=== PATIENT | male | born 1980 | race American Indian/Alaskan Native ===

== ENCOUNTER 2016-05-20 11:12 | Emergency (ER) | payer SELFPAY ==
[2016-05-20] MEDS ORDERED: TORADOL IM ONE (11:20)
--- NOTE | 2016-05-20 11:23 | Emergency Department Report ---
Stated Complaint: SEVERE ABD PAIN Time Seen by Provider: 05/20/16 11:16 - HPI History of Present Illness: 35-year-old patient male comes in with training abdominal pain that woke him up this morning. Nausea nausea vomiting denies any fever or chills just diaphoretic. Patient denies any dysuria. - Exam Physical Exam: Patient's alert and oriented in acute distress. Anxious pacing grabbing his stomach. Cardiovascular S1-S2 regular rate and rhythm respiratory pertussis and bilateral abdomen very tense guarding bowel sounds present. MSE screening note: Focused history and physical exam performed. Due to findings the following was ordered: CT scan ordered abdominal protocol and Toradol 60 mg IM IV insertion ordered. ED Disposition for MSE Condition: Stable
[2016-05-20 11:44] LABS: Basophils % (Auto) 0.5 % (0.0-1.8); Eosinophils % (Auto) 0.6 % (0.0-4.3); Hematocrit 47.7 % (35.5-45.6); Hemoglobin 16.4 gm/dl (11.8-15.2); Mean Corpuscular HGB Conc 34 % (32-34); Mean Corpuscular Hemoglobin 31 pg (28-32); Mean Corpuscular Volume 91 fl (84-94); Platelet Count 283 K/mm3 (140-440); Red Blood Count 5.22 M/mm3 (3.65-5.03); White Blood Count 15.3 K/mm3 (4.5-11.0)
[2016-05-20 12:06] LABS: Alanine Aminotransferase 28 units/L (7-56); Albumin 4.5 g/dL (3.9-5); Albumin/Globulin Ratio 1.6 %; Alkaline Phosphatase 80 units/L (35-129); Anion Gap 18 mmol/L; Bilirubin,Total 0.9 mg/dL (0.1-1.2); Blood Urea Nitrogen 12 mg/dL (9-20); Calcium 9.5 mg/dL (8.4-10.2); Carbon Dioxide 23 mmol/L (22-30); Chloride 103.3 mmol/L (98-107); Glucose 157 mg/dL (75-100); Lipase 16 units/L (13-60); Potassium 4.6 mmol/L (3.6-5.0); Sodium 140 mmol/L (137-145); Total Protein 7.4 g/dL (6.3-8.2)
--- NOTE | 2016-05-20 12:18 | Cat Scan Report ---
CT scan of abdomen and pelvis without IV contrast: History: Severe abdominal pain. Findings: Normal lung bases. No pleural pericardial effusion. Large hiatal hernia. Normal liver spleen pancreas and gallbladder. Normal adrenals. 7.7 cm cyst right kidney. No calculi or evidence of hydronephrosis. Normal bladder. No free intraperitoneal air or fluid. No evidence of adenopathy. Normal aorta. Normal appendix. No evidence of diverticulosis or diverticulitis. Stool in colon. No bowel distention. Impression: Large hiatal hernia. Large cyst right kidney.
--- NOTE | 2016-05-20 12:44 | Emergency Department Report ---
HPI - General Chief Complaint: Abdominal Pain Time Seen by Provider: 05/20/16 11:16 - HPI HPI: Room 19 The patient is a 35-year-old male presenting with a chief complaint of abdominal pain. The patient states was severe epigastric abdominal pain described as tightness. Patient denies nausea vomiting or shortness of breath states he was diaphoretic. Patient states his last bowel movement occurred yesterday and was within normal limits. Patient denies any history of fever or previous episodes of same. The patient states when he arrived his pain was a 10 /10 but after receiving Toradol it has decreased to a 3/10. Patient denies chest pain. Location: Epigastric Duration: Constant since 09:00 Quality: Tightness Severity: 3/10 Modifying factors: [see above] Context: [see above] Mode of transportation: Unknown ED Past Medical Hx - Past Medical History Previous Medical History?: No - Surgical History Additional Surgical History: "Stomach wrap because my esophagus wouldn't close" - Family History Family history: no significant - Social History Smoking Status: Never Smoker Substance Use Type: None - Medications Home Medications: Home Medications Medication Instructions Recorded Confirmed Last Taken Type Famotidine [Pepcid] 20 mg PO BID #30 tablet 05/20/16 Unknown Rx traMADol [Ultram] 50 mg PO Q6HR PRN #10 tablet 05/20/16 Unknown Rx ED Review of Systems ROS: Stated complaint: SEVERE ABD PAIN Other details as noted in HPI Comment: All other systems reviewed and negative Constitutional: diaphoresis. denies: chills, fever Eyes: denies: eye pain, eye discharge, vision change ENT: denies: ear pain, throat pain Respiratory: denies: cough, shortness of breath, wheezing Cardiovascular: denies: chest pain Endocrine: no symptoms reported Gastrointestinal: abdominal pain. denies: nausea, vomiting, diarrhea Genitourinary: denies: urgency, dysuria Musculoskeletal: denies: back pain, joint swelling, arthralgia Skin: denies: rash, lesions Neurological: denies: headache, weakness, paresthesias Psychiatric: denies: anxiety, depression Hematological/Lymphatic: denies: easy bleeding, easy bruising Physical Exam - Physical Exam Vital Signs: Vital Signs 05/20/16 11:18 Pulse Rate 86 Respiratory 22 Rate Blood Pressure 131/94 O2 Sat by Pulse 100 Oximetry Physical Exam: GENERAL: The patient is well-developed well-nourished male sitting on the bed not appearing to be in acute distress. [] HEENT: Normocephalic. Atraumatic. Extraocular motions are intact. Patient has moist mucous membranes. NECK: Supple. Trachea midline CHEST/LUNGS: Clear to auscultation. There is no respiratory distress noted. HEART/CARDIOVASCULAR: Regular. There is no tachycardia. There is no gallop rub or murmur. ABDOMEN: Abdomen is soft, nontender. Patient has normal bowel sounds. There is no abdominal distention. Absent Morrell sign. There is no rebound or guarding SKIN: There is no rash. There is no edema. There is no diaphoresis. NEURO: The patient is awake, alert, and oriented. The patient is cooperative. The patient has normal speech MUSCULOSKELETAL: There is no evidence of acute injury. ED Course Vital Signs 05/20/16 11:18 Pulse Rate 86 Respiratory 22 Rate Blood Pressure 131/94 O2 Sat by Pulse 100 Oximetry - Reevaluation(s) Reevaluation #1: 05/20/16 13:30 Patient states he feels improved ED Medical Decision Making - Lab Data Result diagrams: 05/20/16 11:30 05/20/16 11:30 Laboratory Tests 05/20/16 05/20/16 05/20/16 11:30 11:30 11:30 WBC 15.3 H RBC 5.22 H Hgb 16.4 H Hct 47.7 H MCV 91 MCH 31 MCHC 34 RDW 13.0 L Plt Count 283 Lymph % (Auto) 13.4 [place] % (Auto) 5.6 Eos % (Auto) 0.6 Baso % (Auto) 0.5 Lymph # 2.1 [place] # 0.9 H Eos # 0.1 Baso # 0.1 Seg Neutrophils % 79.9 H Seg Neutrophils # 12.2 H Sodium 140 Potassium 4.6 Chloride 103.3 Carbon Dioxide 23 Anion Gap 18 BUN 12 Creatinine 1.1 Estimated GFR > 60 BUN/Creatinine Ratio 10.90 Glucose 157 H Calcium 9.5 Total Bilirubin 0.9 AST 20 ALT 28 Alkaline Phosphatase 80 Total Creatine Kinase 208 H CK-MB (CK-2) 3.0 CK-MB (CK-2) Rel Index 1.4 Troponin T < 0.010 Total Protein 7.4 Albumin 4.5 Albumin/Globulin Ratio 1.6 Lipase 16 Urine Color Urine Turbidity Urine pH Ur Specific [place] Urine Protein Urine Glucose (UA) Urine Ketones Urine Blood Urine Nitrite Urine Bilirubin Urine Urobilinogen Ur Leukocyte Esterase Urine WBC (Auto) Urine RBC (Auto) Urine Bacteria (Auto) Amorphous Crystals Urine Mucus 05/20/16 05/20/16 11:55 14:26 WBC RBC Hgb Hct MCV MCH MCHC RDW Plt Count Lymph % (Auto) [place] % (Auto) Eos % (Auto) Baso % (Auto) Lymph # [place] # Eos # Baso # Seg Neutrophils % Seg Neutrophils # Sodium Potassium Chloride Carbon Dioxide Anion Gap BUN Creatinine Estimated GFR BUN/Creatinine Ratio Glucose Calcium Total Bilirubin AST ALT Alkaline Phosphatase Total Creatine Kinase 178 H CK-MB (CK-2) 2.8 CK-MB (CK-2) Rel Index 1.5 Troponin T < 0.010 Total Protein Albumin Albumin/Globulin Ratio Lipase Urine Color Yellow Urine Turbidity Slightly-cloudy Urine pH 5.0 Ur Specific [place] 1.023 Urine Protein 30 mg/dl Urine Glucose (UA) Neg Urine Ketones Neg Urine Blood Mod Urine Nitrite Neg Urine Bilirubin Neg Urine Urobilinogen < 2.0 Ur Leukocyte Esterase Neg Urine WBC (Auto) 1.0 Urine RBC (Auto) 15.0 Urine Bacteria (Auto) 1+ Amorphous Crystals Few Urine Mucus 3+ - EKG Data -: EKG Interpreted by Me EKG shows normal: sinus rhythm Rate: bradycardia (59 bpm) - EKG Data When compared to previous EKG there are: previous EKG unavailable - Radiology Data Radiology results: report reviewed (CT abdomen and pelvis), image reviewed (CT abdomen and pelvis) CT abdomen and pelvis (read by radiologist)-large hiatal hernia. Large cyst right kidney. - Differential Diagnosis pancreatitis, peptic ulcer disease, GERD, hiatal hernia, ACS, cholelithiasi Critical care attestation.: If time is entered above; I have spent that time in minutes in the direct care of this critically ill patient, excluding procedure time. ED Disposition Clinical Impression: Abdominal pain, acute, epigastric, Hiatal hernia, Cyst of right kidney Disposition: DISCHARGED TO HOME OR SELFCARE Is pt being admited?: No Does the pt Need Aspirin: No Condition: Stable Instructions: Hiatal Hernia (ED) Additional Instructions: Return to the emergency department immediately should you develop worsening symptoms, fever, inability to tolerate food or liquid or any other concerns. Prescriptions: Famotidine [Pepcid] 20 mg PO BID #30 tablet traMADol [Ultram] 50 mg PO Q6HR PRN #10 tablet PRN Reason: Pain Referrals: PRIMARY CARE, [Primary Care Provider] - 3-5 Days ZOHREH BEE MD [Staff Physician] - 3-5 Days (Dr. Bee is a hardware design engineer. Please follow up with her for further evaluation of your right kidney cyst) PAULO BROCK MD [Staff Physician] - 3-5 Days (Dr. Brock is a exchange engineer. Please follow-up with him for further evaluation) Time of Disposition: 15:08
[2016-05-20] MEDS ORDERED: LIDOCAINE VISCOUS 2% PO ONE (12:46)
[2016-05-20] MEDS ORDERED: ALUM-MAG HYDROX-SIMETH 200-200-20MG/5ML PO ONE (12:46)
[2016-05-20 13:05] LABS: Creatine Kinase 208 units/L (55-170)
[2016-05-20 14:02] VITALS: BP 126/85
[2016-05-20 14:20] LABS: Bacteria,Urine 1+ /HPF (Negative); Bilirubin,Urine NEG (Negative); Blood,Urine MOD (Negative); Ketones,Urine NEG (Negative); Leukocyte Esterase,Urine NEG (Negative); Mucus,Urine 3+ /HPF; Nitrite,Urine NEG (Negative); Urobilinogen,Urine < 2.0 mg/dL (<2.0)
[2016-05-20 15:06] LABS: Creatine Kinase MB 2.8 ng/mL (0.0-4.0)
[2016-05-20 15:07] LABS: Creatine Kinase 178 units/L (55-170)
== END 2016-05-20 15:30 | disposition home or self-care (01) ==
LOC: ED 11:12
DX: R10.13 Epigastric pain (principal); K44.9 Diaphragmatic hernia without obstruction or gangrene; N28.1 Cyst of kidney, acquired
CPT/HCPCS: 36415; 74176; 80053; 81001; 82550; 82553; 83690; 84484; 85025; 93005; 93010; 96372; 99284; J1885